=== PATIENT | female | born 1980 | race Two or more races ===

== ENCOUNTER 2017-09-21 23:31 | Emergency (ER) | payer OTHER ==
[~2017-09-21] VITALS: Ht 165.1 cm; Wt 95.0 kg
[2017-09-22 04:00] LABS: BASOPHILS % 0.7 % (0.0-2.0); EOSINOPHILS % 1.2 % (0.0-5.0); HEMATOCRIT. 33.7 % (36.0-48.0); LYMPHOCYTES % 22.6 % (20.0-50.0); MEAN CORPUSCULAR VOLUME 73.5 fL (81.0-99.0); MEAN PLATELET VOLUME 10.6 fl (7.4-10.4); MONOCYTES % 7.4 % (2.0-8.0); NEUTROPHILS % 68.1 % (40.0-76.0); PLATELET 172 x1000/uL (130-400); RED BLOOD CELL COUNT 4.58 mill/uL (4.2-5.4); RED CELL DISTRIBUTION WIDTH 16.5 % (11.6-14.6)
[2017-09-22] MEDS ORDERED: HYDROCODONE/ACETAMINOPHEN 5/325MG TABLET PO ONE (04:00)
[2017-09-22 04:01] LABS: CHLORIDE 104 mEq/L (98-107)
[2017-09-22 04:03] LABS: INR 1.1; PROTHROMBIN TIME 11.3 sec (9.4-11.6)
[2017-09-22] MEDS ORDERED: POTASSIUM CHLORIDE 20MEQ/PACKET PO ONE (06:00)
[2017-09-22] MEDS ORDERED: MORPHINE SULFATE 2 MG/ML CPJ (NOT FOR IM USE) IV ONE (06:15)
[2017-09-22 06:45] VITALS: BP 148/80
== END 2017-09-22 07:00 | disposition home or self-care (01) ==
LOC: ER 23:31
DX: R07.89 Other chest pain (principal); M25.511 Pain in right shoulder; I10 Essential (primary) hypertension; F17.200 Nicotine dependence, unspecified, uncomplicated; Z98.1 Arthrodesis status
CPT/HCPCS: 36415; 71045; 80053; 81025; 84484; 85025; 85610; 85730; 93005; 96374; 99285; J2270; Z7610

== ENCOUNTER 2018-08-20 14:56 | Inpatient (IN) | payer OTHER ==
[~2018-08-20] VITALS: Ht 160 cm; Wt 103.0 kg
[2018-08-20 17:58] LABS: CLARITY URINE CLEAR (CLEAR); COLOR URINE ORANGE (YELLOW); KETONES URINE NEGATIVE (NEGATIVE); LEUKOCYTE ESTERASE URINE TRACE (NEGATIVE); NITRITE URINE NEGATIVE (NEGATIVE); OCCULT BLOOD URINE 3+ (NEGATIVE); PH URINE 5.5 (4.5-8.0); PROTEIN URINE TRACE (NEGATIVE); SPECIFIC GRAVITY URINE 1.013 (1.005-1.030); UROBILINOGEN URINE 0.2 E.U./dL (0.2-1.0)
[2018-08-20] MEDS ORDERED: SODIUM CHLORIDE 0.9% 1,000 ML IV ONE (20:42)
[2018-08-20] MEDS ORDERED: ONDANSETRON HCL 4MG/2ML INJ IV ONE (20:45)
[2018-08-20] MEDS ORDERED: MORPHINE SULFATE 4 MG/ML CPJ (NOT FOR IM USE) IV ONE (21:00)
[2018-08-20 22:56] LABS: CHLORIDE 107 mEq/L (98-107)
[2018-08-20 23:04] LABS: BASOPHILS % 0.6 % (0.0-2.0); EOSINOPHILS % 2.5 % (0.0-5.0); HEMOGLOBIN. 10.8 g/dL (12.0-16.0); LYMPHOCYTES % 20.6 % (20.0-50.0); MEAN CORPUSCULAR HEMOGLOBIN 26.2 pg (28.0-32.0); MEAN CORPUSCULAR VOLUME 77.7 fL (81.0-99.0); MEAN PLATELET VOLUME 10.2 fl (7.4-10.4); MONOCYTES % 6.1 % (2.0-8.0); NEUTROPHILS % 70.2 % (40.0-76.0); PLATELET 187 x1000/uL (130-400); RED BLOOD CELL COUNT 4.12 mill/uL (4.2-5.4); RED CELL DISTRIBUTION WIDTH 22.4 % (11.6-14.6)
[2018-08-20 23:10] LABS: B-HCG QUANTITATIVE 966 mIU/mL (<3)
[2018-08-20 23:28] LABS: PLATELET ESTIMATE NORMAL
[2018-08-21] MEDS ORDERED: HYDROMORPHONE HCL/PF 2MG/ML CPJ IV ONE (00:15)
[2018-08-21 08:00] VITALS: BP 122/77
[2018-08-21] MEDS ORDERED: MORPHINE SULFATE 2 MG/ML CPJ (NOT FOR IM USE) IV ONE (09:00)
[2018-08-21 09:30] VITALS: BP 122/77
[2018-08-21] MEDS ORDERED: HYDROCODONE/ACETAMINOPHEN 5/325MG TABLET PO PRN (10:00)
[2018-08-21] MEDS ORDERED: GUAIFENESIN 200MG/10ML SUGAR FREE UDC PO PRN (11:15)
[2018-08-21] MEDS ORDERED: MAGNESIUM/ALUMINUM HYDROXIDE/SIMETHICONE 30ML UDC PO PRN (11:15)
[2018-08-21] MEDS ORDERED: IPRATROPIUM/ALBUTEROL 0.5-3(2.5)MG/3ML NEB INH PRN (11:15)
[2018-08-21] MEDS ORDERED: ACETAMINOPHEN 325MG TABLET PO PRN (11:15)
[2018-08-21] MEDS ORDERED: CLONIDINE 0.1MG TABLET PO PRN (11:15)
[2018-08-21] MEDS ORDERED: ONDANSETRON HCL 4MG/2ML INJ IV PRN (11:15)
[2018-08-21] MEDS ORDERED: DIPHENHYDRAMINE 50MG/ML VIAL IV PRN (11:15)
[2018-08-21] MEDS ORDERED: DOCUSATE SODIUM 100MG CAPSULE PO PRN (11:15)
[2018-08-21] MEDS ORDERED: LABE200T28 MT (11:28)
[2018-08-21] MEDS: MORPHINE SULFATE 4 MG/ML CPJ (NOT FOR IM USE) IV PRN ×2 (11:49→16:44)
[2018-08-21 11:52] VITALS: BP 109/57
[2018-08-21] MEDS: SODIUM CHLORIDE 0.9% 1,000 ML IV SCH ×2 (12:28→21:10)
[2018-08-21 12:49] LABS: PHOSPHORUS 3.9 mg/dL (2.5-4.9)
[2018-08-21 15:55] VITALS: BP 136/84
[2018-08-21 16:33] LABS: BASOPHILS % 0.4 % (0.0-2.0); EOSINOPHILS % 2.7 % (0.0-5.0); HEMATOCRIT. 29.2 % (36.0-48.0); HEMOGLOBIN. 9.6 g/dL (12.0-16.0); LYMPHOCYTES % 21.3 % (20.0-50.0); MEAN CORPUSCULAR HEMOGLOBIN 25.9 pg (28.0-32.0); MEAN CORPUSCULAR VOLUME 78.9 fL (81.0-99.0); MONOCYTES % 7.6 % (2.0-8.0); PLATELET 153 x1000/uL (130-400); RED CELL DISTRIBUTION WIDTH 22.2 % (11.6-14.6)
[2018-08-21 20:00] VITALS: BP 160/90
[2018-08-21] MEDS: LABETALOL HCL 200MG TABLET PO SCH (20:01)
[2018-08-21 20:32] VITALS: BP 114/72
[2018-08-22] VITALS: BP_SYST 114; BP_SYST 160; BP_DIAS 72; BP_DIAS 90
[2018-08-22 04:00] VITALS: BP 132/74
[2018-08-22 06:48] LABS: CHLORIDE 112 mEq/L (98-107)
[2018-08-22 07:05] LABS: BASOPHILS % 0.4 % (0.0-2.0); EOSINOPHILS % 2.3 % (0.0-5.0); HEMOGLOBIN. 9.3 g/dL (12.0-16.0); LYMPHOCYTES % 20.3 % (20.0-50.0); MEAN CORPUSCULAR HEMOGLOBIN 26.1 pg (28.0-32.0); MEAN CORPUSCULAR VOLUME 78.9 fL (81.0-99.0); MEAN PLATELET VOLUME 9.9 fl (7.4-10.4); MONOCYTES % 8.7 % (2.0-8.0); NEUTROPHILS % 68.3 % (40.0-76.0); PLATELET 170 x1000/uL (130-400); RED BLOOD CELL COUNT 3.55 mill/uL (4.2-5.4); RED CELL DISTRIBUTION WIDTH 22.5 % (11.6-14.6)
[2018-08-22 07:06] LABS: HDL CHOLESTEROL 33 mg/dL (40-59)
[2018-08-22] MEDS: SODIUM CHLORIDE 0.9% 1,000 ML IV SCH (07:10)
[2018-08-22 07:15] LABS: LDL CHOLESTEROL 122 mg/dL (5-100)
[2018-08-22] MEDS: LABETALOL HCL 200MG TABLET PO SCH (09:00)
== END 2018-08-22 09:57 | disposition home or self-care (01) | DRG 564 ==
LOC: ER 15:42 → 6EST 08-21 00:35 → EDBEDREQ 08-21 02:10 → EDBEDREQTM 08-21 02:10 → ENRESERV 08-21 07:14
PROVIDERS: ADMIT Internal Medicine; ATTEND Internal Medicine
DX: O03.4 Incomplete spontaneous abortion without complication (principal); D62 Acute posthemorrhagic anemia; O99.011 Anemia complicating pregnancy, first trimester; O10.911 Unspecified pre-existing hypertension complicating pregnancy, first trimester; Z98.1 Arthrodesis status
CPT/HCPCS: 36415; 76830; 76856; 80061; 83735; 84100; 84443; 84702; 86850; 86900; 96361; 96374; 96375; 97162; 99285; J1170; J2270; J2405; J7030

== ENCOUNTER 2022-06-10 21:11 | Emergency (ER) | payer MEDICAID, OTHER ==
[~2022-06-10] VITALS: Ht 157.5 cm; Wt 100.0 kg
[2022-06-10] MEDS ORDERED: ACETAMINOPHEN 325MG TABLET PO STA (21:32)
[2022-06-10] MEDS ORDERED: ASPIRIN 81MG TABLET PO ONE (21:45)
[2022-06-10 22:27] VITALS: BP 135/81
[2022-06-10 22:38] LABS: BASOPHILS % 0.7 % (0.0-2.0); HEMATOCRIT. 30.9 % (36.0-48.0); HEMOGLOBIN. 9.6 g/dL (12.0-16.0); LYMPHOCYTES % 9.1 % (20.0-50.0); MEAN CORPUSCULAR HEMOGLOBIN 21.1 pg (28.0-32.0); MONOCYTES % 6.7 % (2.0-8.0); NEUTROPHILS % 82.5 % (40.0-76.0); RED BLOOD CELL COUNT 4.55 mill/uL (4.2-5.4); RED CELL DISTRIBUTION WIDTH 17.3 % (11.6-14.6)
[2022-06-10 22:42] LABS: CHLORIDE 104 mEq/L (98-107)
[2022-06-10 23:20] LABS: PLATELET ESTIMATE SLIGHTLY DECREASED
[2022-06-10 23:21] LABS: MEAN PLATELET VOLUME 9.9 fl (7.4-10.4); PLATELET 125 x1000/uL (130-400)
== END 2022-06-11 01:08 | disposition home or self-care (01) ==
LOC: ER 21:11
DX: R07.9 Chest pain, unspecified (principal); I10 Essential (primary) hypertension
CPT/HCPCS: 36415; 71045; 80053; 84484; 85025; 85379; 93005; 99285; Z7610